=== PATIENT | female | born 2000 | race Caucasian/White ===

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

== ENCOUNTER 2020-01-17 20:43 | Outpatient (CLI) | payer BC, MEDICAID ==
[2020-01-17 21:33] LABS: APPEARANCE,URINE SLIGHTLY-CLOUDY; BILIRUBIN,URINE NEGATIVE (NEGATIVE); COLOR,URINE YELLOW; GLUCOSE, URINE 50 mg/dL (NEGATIVE); KETONES,URINE TRACE mg/dL (NEGATIVE); LEUKOCYTE ESTERASE,URINE NEGATIVE (NEGATIVE); NITRITE,URINE NEGATIVE (NEGATIVE); PROTEIN,URINE 100 mg/dL (NEGATIVE); URINE SPECIFIC GRAVITY 1.027; UROBILINOGEN,URINE NEGATIVE mg/dL (<2.0)
[2020-01-17 21:45] LABS: URINE AMPHETAMINES SCREEN NEGATIVE; URINE BARBITURATES SCREEN NEGATIVE; URINE BENZODIAZEPINES SCREEN NEGATIVE; URINE COCAINE SCREEN NEGATIVE; URINE MARIJUANA (THC) SCREEN NEGATIVE; URINE METHADONE SCREEN NEGATIVE; URINE PHENCYCLIDINE SCREEN NEGATIVE
== END 2020-01-17 21:40 | disposition home or self-care (01) ==
LOC: LC 20:43
PROVIDERS: ATTEND Obstetrics & Gynecology Gynecology
DX: O47.02 False labor before 37 completed weeks of gestation, second trimester (principal); Z3A.25 25 weeks gestation of pregnancy
CPT/HCPCS: 80307; 81001

== ENCOUNTER 2020-02-19 13:21 | Emergency (ER) | payer BC, MEDICAID, OTHER ==
--- NOTE | 2020-02-19 14:06 | ER Document Report ---
ED Dizziness/Weakness - General Chief Complaint: Dizziness Stated Complaint: DIZZINESS Time Seen by Provider: 02/19/20 13:54 Mode of Arrival: Ambulatory Information source: Patient Notes: 19-year-old female 4 para 0 presents to the emergency room complaining of dizziness for the past 2 days. She is unable to describe the dizziness. Denies feeling like the room spinning or she is spinning. States when she goes to stand up she feels like her heart is racing. Patient states she tripped coming down her stairs 2 days ago landing on her belly and hitting her head on the wall. States she fell approximately 8 stairs. She denied any loss of consciousness. Denies headache , states dizziness started about 30 minutes post head injury. States is been getting progressively worse. Denies any nausea, no vomiting states she called her [facility] yesterday but did not receive a return c all back. She denies any abdominal pain, no vaginal bleeding, no vaginal discharge. TRAVEL OUTSIDE OF THE [place] IN LAST 30 DAYS: No - Related Data Allergies/Adverse Reactions: lorazepam [From Ativan] Allergy (Verified 02/19/20 14:08) raspberry Allergy (Verified 02/19/20 14:08) Past Medical History - General Information source: Patient - Social History Smoking Status: Never Smoker Frequency of alcohol use: None Drug Abuse: None Lives with: Family Family History: Reviewed & Not Pertinent, CAD, DM Pulmonary Medical History: Reports: Hx Asthma Renal/ Medical History: Denies: Hx Peritoneal Dialysis Past Surgical History: Reports: Hx Appendectomy, Other - Eye surgery. Cystoscopy. - Immunizations Immunizations up to date: Yes Review of Systems - Review of Systems Constitutional: No symptoms reported Cardiovascular: No symptoms reported Respiratory: No symptoms reported Gastrointestinal: No symptoms reported. denies: Abdominal pain, Nausea, Vomiting Genitourinary: No symptoms reported Female Genitourinary: . denies: Vaginal discharge, Vaginal bleeding Musculoskeletal: No symptoms reported Neurological/Psychological: Other - Dizziness. denies: Headaches -: Yes All other systems reviewed and negative Physical Exam - Vital signs Vitals: Temp Pulse Resp BP Pulse Ox 98.3 F 115 H 16 118/71 97 02/19/20 13:21 02/19/20 13:21 02/19/20 13:21 02/19/20 13:21 02/19/20 13:21 - General General appearance: Appears well, Alert In distress: Mild - HEENT Head: Normocephalic, Atraumatic Eyes: Normal Pupils: PERRL - Respiratory Respiratory status: No respiratory distress Chest status: Nontender Breath sounds: Normal Chest palpation: Normal - Cardiovascular Rhythm: Tachycardia Heart sounds: Normal auscultation Murmur: No - Abdominal Inspection: Gravid female Distension: No distension Bowel sounds: Normal Tenderness: Nontender Organomegaly: No organomegaly - Neurological Neuro grossly intact: Yes Cognition: Normal Orientation: AAOx4 [place] Coma Scale Eye Opening: Spontaneous [place] Coma Scale Verbal: Oriented Samantha Coma Scale Motor: Obeys Commands Samantha Coma Scale Total: 15 Speech: Normal Motor strength normal: LUE, RUE, LLE, RLE Sensory: Normal - Skin Skin Temperature: Warm Skin Moisture: Dry Skin Color: Normal Course - Re-evaluation Re-evalutation: 02/19/20 15:59 Patient's resting continues to complain of dizziness. We did offer a CT of the brain. Patient was aware the risks of radiation to fetus. Patient refused CT at this time. Discussed postconcussive symptoms with the patient. She is ambu latory with a steady gait. Reviewed lab results with patient. ED doc did a quick FAST exam no abnormalities noted. Discussed care with on-call OB Dr. Penaloza patient to go to labor and delivery for NST. Patient was counseled no driving until cleared by her primary care physician. [place]. Patient was given strict return to the emergency room guidelines. She is to return for any new or worsening symptoms. All questions were answered. Patient verbalized understanding and agrees with plan of care. 02/19/20 16:22 02/19/20 16:22 - Vital Signs Vital signs: Temp Pulse Resp BP Pulse Ox 98.3 F 77 20 113/74 98 02/19/20 13:21 02/19/20 14:26 02/19/20 14:32 02/19/20 16:00 02/19/20 16:01 - Laboratory Result Diagrams: 02/19/20 14:29 02/19/20 14:29 Laboratory results interpreted by me: 02/19/20 02/19/20 02/19/20 14:29 14:29 14:29 WBC 15.0 H Absolute Neuts (auto) 11.9 H Seg Neutrophils % 79.4 H Sodium 134.8 L Carbon Dioxide 20 L BUN 6 L Albumin 3.4 L Urine Protein 100 H Urine Blood SMALL H - Consults Dr. Marco Penaloza Time consulted: 16:02 Reason for consultation: 02/19/20 16:02 heart monitoring in labor and delivery Discharge - Discharge Clinical Impression: Dizzy Head injury Qualifiers: Encounter type: initial encounter Qualified Code(s): S09.90XA - Unspecified injury of head, initial encounter Abdominal trauma Qualifiers: Encounter type: initial encounter Qualified Code(s): S39.91XA - Unspecified injury of abdomen, initial encounter Condition: Stable Disposition: LABOR CHECK Instructions: Concussion ([facility]), Post-Concussion Syndrome ([facility]) Additional Instructions: You are to go up to labor and delivery for monitoring of the baby. You cannot return to work until you are cleared by your primary care physician. No driving until asymptomatic and cleared by your primary care physician. Forms: Return to Work
[2020-02-19] MEDS ORDERED: RINGERS SOLUTION,LACTATED 1,000 ML IV ONE (14:42)
[2020-02-19 14:56] LABS: ABSOLUTE BASOPHILS # (AUTO) 0.1 10^3/uL (0.0-0.2); ABSOLUTE EOSINOPHILS # (AUTO) 0.1 10^3/uL (0.0-0.6); ABSOLUTE LYMPHOCYTES (AUTO) 2.1 10^3/uL (0.5-4.7); ABSOLUTE MONOCYTES (AUTO) 0.8 10^3/uL (0.1-1.4); ABSOLUTE NEUT (AUTO) 11.9 10^3/uL (1.7-8.2); BASOPHILS % (AUTO) 0.3 % (0-2); EOSINOPHILS % (AUTO) 0.9 % (0-6); HEMATOCRIT 37.6 % (36.0-47.0); HEMOGLOBIN 12.8 g/dL (12.0-15.5); LYMPHOCYTES % (AUTO) 13.9 % (13-45); MEAN CORPUSCULAR HEMOGLOBIN 29.5 pg (27.0-33.4); MEAN CORPUSCULAR HGB CONC 33.9 g/dL (32.0-36.0); MEAN CORPUSCULAR VOLUME 87 fl (80-97); MONOCYTES % (AUTO) 5.5 % (3-13); PLATELET COUNT 252 10^3/uL (150-450); RED BLOOD COUNT 4.33 10^6/uL (3.72-5.28); RED CELL DISTRIBUTION WIDTH 13.2 % (11.5-14.0); SEGMENTED NEUTROPHILS % (AUTO) 79.4 % (42-78); TOTAL CELLS COUNTED % (AUTO) 100 %
[2020-02-19 15:12] LABS: ALBUMIN 3.4 g/dL (3.7-5.6); ALKALINE PHOSPHATASE 95 U/L (50-135); ANION GAP 9 (5-19); ASPARTATE AMINO TRANSFERASE 17 U/L (5-30); BILIRUBIN,TOTAL 0.3 mg/dL (0.2-1.3); BLOOD UREA NITROGEN 6 mg/dL (7-20); CARBON DIOXIDE 20 mmol/L (22-30); CHLORIDE 106 mmol/L (98-107); GLUCOSE 89 mg/dL (75-110); POTASSIUM 3.9 mmol/L (3.6-5.0); TOTAL PROTEIN 6.8 g/dL (6.3-8.2)
[2020-02-19 15:40] LABS: APPEARANCE,URINE SLIGHTLY-CLOUDY; BILIRUBIN,URINE NEGATIVE (NEGATIVE); COLOR,URINE AMBER; GLUCOSE, URINE NEGATIVE (NEGATIVE); KETONES,URINE NEGATIVE (NEGATIVE); LEUKOCYTE ESTERASE,URINE NEGATIVE (NEGATIVE); NITRITE,URINE NEGATIVE (NEGATIVE); PROTEIN,URINE 100 mg/dL (NEGATIVE); URINE SPECIFIC GRAVITY 1.024; UROBILINOGEN,URINE NEGATIVE mg/dL (<2.0)
[2020-02-19 16:20] VITALS: BP 123/64
== END 2020-02-19 16:19 | disposition admitted as inpatient to this hospital (09) ==
LOC: ER 13:21
DX: O26.899 Other specified pregnancy related conditions, unspecified trimester (principal); R42 Dizziness and giddiness; R51 Headache; O9A.219 Injury, poisoning and certain other consequences of external causes complicating pregnancy, unspecified trimester; S39.91XA Unspecified injury of abdomen, initial encounter; W10.9XXA Fall (on) (from) unspecified stairs and steps, initial encounter; W22.01XA Walked into wall, initial encounter; O99.519 Diseases of the respiratory system complicating pregnancy, unspecified trimester; J45.909 Unspecified asthma, uncomplicated; Z88.8 Allergy status to other drugs, medicaments and biological substances; Z91.018 Allergy to other foods; Z3A.00 Weeks of gestation of pregnancy not specified
CPT/HCPCS: 99284; 96360; 36415; 85025; 80053; 81001; J7120

== ENCOUNTER 2020-02-19 16:38 | Outpatient (CLI) | payer OTHER | END 2020-02-19 17:08 | disposition home or self-care (01) | LOC: LC 16:38 | PROVIDERS: ATTEND Obstetrics & Gynecology | DX: Z34.03 Encounter for supervision of normal first pregnancy, third trimester (principal); Z3A.29 29 weeks gestation of pregnancy | CPT/HCPCS: 59025 ==